=== PATIENT | male | born 1955 | race Caucasian/White ===

== ENCOUNTER 2017-10-30 14:05 | Outpatient (CLI) | payer BC, MEDICARE ==
--- NOTE | 2017-10-31 07:36 | ULT ---
BILATERAL LOWER EXTREMITY VENOUS ULTRASOUND 10/30/17 Color duplex doppler ultrasonography of the deep veins of each lower extremity was performed. There w as no evidence of echogenic clot on either side. All deep veins were freely compressible from groin t o ankle bilaterally. There were normal doppler responses to augmentation maneuvers. IMPRESSION: No evidence of DVT. POS: HOME
== END 2017-10-30 14:06 | disposition home or self-care (01) ==
LOC: BURULT 14:05
PROVIDERS: ATTEND Family Medicine
DX: I25.10 Atherosclerotic heart disease of native coronary artery without angina pectoris (principal); R60.0 Localized edema
CPT/HCPCS: 93970

== ENCOUNTER 2020-05-31 14:57 | Emergency (ER) | payer BC, MEDICARE ==
[2020-05-31] MEDS ORDERED: methylPREDNISolone Sod Succ/PF 125 MG/2 ML VIAL ONE (15:55)
[2020-05-31 15:56] LABS: ALT (SGPT) 34 U/L (8-55); AST (SGOT) 79 U/L (5-34); Albumin 4.1 g/dL (3.4-4.8); Alkaline Phosphatase 53 U/L (40-110); Anion Gap 22 mmol/L (10-20); Anisocytosis SLIGHT = 6-15 cells (100X) (0-5/hpf); BUN (Urea Nitrogen) 61 mg/dL (8.4-25.7); Band 7 % (5-11); Bilirubin, Total 0.5 mg/dL (0.2-1.2); CK (CPK) 124 U/L (30-200); Calc. Creatinine Clearance 0 mL/min (70-130); Calcium 8.8 mg/dL (7.8-10.44); Carbon Dioxide 16 mmol/L (23-31); Chloride 103 mmol/L (98-107); Estimated GFR-MDRD 14; Globulin 3.9 g/dL (2.4-3.5); Glucose 66 mg/dL (80-115); Hemoglobin 12.8 g/dL (14.0-18.0); Hypochromia SLIGHT = 6-15 cells (100X) (0-5/hpf); Lymphocytes 11 % (21-51); MDiff Complete? YES; Mean Corpuscular HGB CONC 30.7 g/dL (32.0-36.0); Mean Corpuscular Hemoglobin 24.3 pg (27.0-31.0); Mean Corpuscular Volume 79.3 fL (78.0-98.0); Mean Platelet Volume 8.3 fL (7.4-10.4); Metamyelocyte 1 % (0-0); Microcytosis SLIGHT = 6-15 cells (100X) (0-5/hpf); Neutrophil 81 % (42-75); Platelet Count 149 thou/uL (130-400); Poikilocytosis SLIGHT = 6-15 cells (100X) (0-5/hpf); Potassium 3.1 mmol/L (3.5-5.1); RBC Distribution Width 17.6 % (11.5-14.5); Red Blood Cell (RBC) Count 5.26 mill/uL (4.70-6.10); Sodium 138 mmol/L (136-145); White Blood Cell (WBC) Count 6.2 thou/uL (4.8-10.8)
[2020-05-31] MEDS ORDERED: cefTRIAXone\\ROCEPHIN 2 GM VIAL ONE (15:59)
[2020-05-31] MEDS ORDERED: Azithromycin 500 MG VIAL ONE ×2 (15:59→16:01)
--- NOTE | 2020-05-31 16:48 | RAD ---
PORTABLE CHEST 05/31/20 An AP portable film at 1534 is compared with a 01/22/18 study. The heart is mildly enlarged as before but no more so. There are diffuse patchy infiltrates present b ilaterally. Most extensive is in the right upper lobe but there are also some patchy ground glass per ipheral areas in the left mid lung zone. The vessels themselves do not really appear congested. This seems more likely air space disease than vascular in nature. Pneumonia, particularly COVID, should be considered. There are no large effusions. IMPRESSION: Patchy air space disease, worst in the right upper lobe. While bacterial etiologies are possible, vir al seems more likely and COVID should be a consideration. Findings discussed with Dr. Rea at 1622 on 05/31/20. POS: HOME
== END 2020-05-31 17:40 | disposition short-term general hospital (02) ==
LOC: BURERS 14:57
DX: J96.01 Acute respiratory failure with hypoxia (principal); N17.9 Acute kidney failure, unspecified; I10 Essential (primary) hypertension; F41.9 Anxiety disorder, unspecified; F43.10 Post-traumatic stress disorder, unspecified; Z87.891 Personal history of nicotine dependence
CPT/HCPCS: 36415; 71045; 80053; 82550; 83605; 83880; 84484; 85025; 87040; 87804; 96365; 96367; 96375; J0456; J0696; J2930; J7620